=== PATIENT | male | born 1965 | race Caucasian/White ===

== ENCOUNTER 2019-04-24 07:28 | Emergency (ER) | payer OTHER ==
[~2019-04-24] VITALS: Ht 170.2 cm; Wt 77.1 kg
[2019-04-24] MEDS ORDERED: ONDANSETRON ODT8 MG PO (08:38)
[2019-04-24] MEDS ORDERED: NORCO 5-325 TA1 EACH PO (08:38)
[2019-04-24] MEDS ORDERED: PROMETHAZINE HC25 M1 PO (10:21)
== END 2019-04-24 10:59 | disposition home or self-care (01) ==
LOC: ED 07:28
DX: N20.1 Calculus of ureter (principal); Z88.5 Allergy status to narcotic agent
CPT/HCPCS: 80053; 81001; 85025; 96361; 96374; 96375; 99284-25; J1170; J1885; J2405; J2550; J7030

== ENCOUNTER 2019-04-26 04:27 | Emergency (ER) | payer OTHER ==
[~2019-04-26] VITALS: Ht 170.2 cm; Wt 77.1 kg
[~2019-04-26 04:27] MED LIST: NORCO 5-325 TA1 EACH PO; ONDANSETRON ODT8 MG PO; PROMETHAZINE HC25 M1 PO
--- OUTSIDE RECORDS SUMMARY | 2019-04-26 04:30 | XMS ---
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 Yusuf has no Care Guidelines for this patient. Jean-Claude VIS[facility] COUNT (12 MO.) [facility] T[facility] NOTE: Visits indicate total known visits. ED/C VISIT TRACKING (12 MO.) 04/26/2019 04:[address] [facility] [place] TYPE: Emergency COMPLAINT: - KIDNEY PAIN 04/24/2019 07:29 [facility] TYPE: Emergency COMPLAINT: - R FLANK PAIN INPATIENT VISIT TRACKING (12 MO.) No inpatient visits to display in this time frame [id number]
[2019-04-26] MEDS ORDERED: PERCOCET 5-3251 EACH PO (05:59)
== END 2019-04-26 06:13 | disposition home or self-care (01) ==
LOC: ED 04:27
DX: N13.2 Hydronephrosis with renal and ureteral calculous obstruction (principal); Z87.442 Personal history of urinary calculi; Z88.5 Allergy status to narcotic agent
CPT/HCPCS: 74176; 96374; 96375; 99284-25; J1170; J2405

== ENCOUNTER 2020-01-07 06:28 | Day surgery (SDC) | payer OTHER ==
[~2020-01-07] VITALS: Ht 170.2 cm; Wt 74.8 kg
[~2020-01-07 06:28] MED LIST changes: +PERCOCET 5-3251 EACH PO
--- NOTE | 2020-01-07 07:46 | NUR ---
01/07/20 0746 Ana Harvey 0736-PATIENT ARRIVED TO PACU ON 2L NC RR EVEN NONAROUSABLE. LAYING LEFT LATERAL. ABDOMEN SOFT IVF INFUSING 0744-PATIENT AROUSING TO VERBAL AND TACTILE STIMULI SLIGHTLY OPENING EYES. ENCOURAGED TO PASS GAS. VERY DROWSY BACK TO SLEEP. RR EVEN
--- NOTE | 2020-01-07 08:24 | OR ---
[facility] [address], [place] [address] Signed DATE OF OPERATION: 01/07/2020 SURGEON: Mariah Odonnell MD PREOPERATIVE DIAGNOSIS: Screening. POSTOPERATIVE DIAGNOSES: 1. Unremarkable colonoscopy. 2. Mildly enlarged indurated prostate gland, left greater than right. PROCEDURE: Colonoscopy without biopsy. ESTIMATED BLOOD LOSS: None. INDICATIONS: Ramone is a 54-year-old gentleman, who was asked to see me for his initial screening colonoscopy. He said there is no family history of colon cancer or polyps. He has no lower GI complaints. In the office, I gave Ramone a pamphlet on colonoscopy. He understands the nature of that test along with its risks including, but not limited to gas bloating, crampy abdominal pain, bleeding, perforation requiring surgery, and missed diagnosis. We also discussed the need for IV conscious sedation. He had expressed understanding and wished to proceed. PROCEDURE NOTE: Ramone was taken into our endoscopy suite and placed in the left lateral decubitus position. He was given a total of 8 mg of Versed and 150 mcg of fentanyl to cover the case. A digital rectal exam was performed and this demonstrated his prostate is slightly enlarged and indurated. The left is more prominent than the right. Good sphincter tone. No external hemorrhoids. After this, the adult colonoscope was introduced and advanced all around into the cecum under direct visualization of camera. His prep was quite excellent. It took extra sedation and abdominal compression in order to advance the scope directly into the cecum. Once he was relaxed, the scope passed quite nicely. The scope was then slowly withdrawn. We could easily see the appendiceal orifice and the ileocecal valve. We found no pathology throughout the entire colon or rectum. Upon retroflexion of scope, there was no additional pathology noted above the anal canal. After this, the gas was suctioned out and colonoscope removed. Ramone tolerated the procedure quite well. Electronically Signed By: MARIAH ODONNELL MD 01/07/20 0824 PATIENT NAME: RAMONE SEARS OPERATIVE REPORT DATE OF : 67 REPORT #: [id number] PHYSICIAN: MARIAH ODONNELL MD PCP: VIMAL PERES MD REPORT IS CONFIDENTIAL AND NOT TO BE RELEASED WITHOUT AUTHORIZATION [address] [address] Signed RECOMMENDATIONS: Ramone can follow up in 10 years for repeat colonoscopy. Mariah Odonnell MD ALB/MODL /[id number] cc: MD Vimal Ag MD Copies: MARIAH ODONNELL MD, ROBERT D DMD ~ Electronically Signed By: MARIAH ODONNELL MD 01/07/20 0824 PATIENT NAME: RAMONE SEARS OPERATIVE REPORT DATE OF : 67 REPORT #: [id number] PHYSICIAN: MARIAH ODONNELL MD PCP: VIMAL PERES MD REPORT IS CONFIDENTIAL AND NOT TO BE RELEASED WITHOUT AUTHORIZATION
--- NOTE | 2020-01-07 08:44 | NUR ---
TO ROOM TO SLEEP AT APPT.
--- NOTE | 2020-01-07 09:54 | NUR ---
2982 HERE TO TAKE PT HOME.
--- NOTE | 2020-01-07 14:34 | NUR ---
PT HERE FOR FIRST SCOPE-SUPPORTED BY HIS . SOMEWHAT ANXIOUS, HAD SOME ISSUES WITH PREP-MILD THOUGH. ENCOURAGED PT LETTING HIM KNOW GOD IS WITH HIM. HE REQUESTED PRAYER, WILL FOLLOW NEEDED
== END 2020-01-07 09:30 | disposition home or self-care (01) ==
LOC: OPS 06:28 → DS 06:28 → OPS 06:45
PROVIDERS: Colon & Rectal Surgery
PROC: 0DJD8ZZ Inspection of Lower Intestinal Tract, Via Natural or Artificial Opening Endoscopic (ICD-10-PCS; principal; 2020-01-07 06:45)
DX: Z12.11 Encounter for screening for malignant neoplasm of colon (principal); N40.0 Benign prostatic hyperplasia without lower urinary tract symptoms
CPT/HCPCS: 99153; G0500; J2250; J3010; J7121